=== PATIENT | male | born 1955 | race Caucasian/White ===

== ENCOUNTER 2022-06-18 15:16 | Outpatient (REF) | payer MEDICARE, MEDICAID, SELFPAY ==
[2022-06-18 15:48] LABS: Abs Immature Grans 0.03 10^3/uL (0.0-0.06); Absolute Basophil Count 0.07 10^3/uL (0.0-0.2); Absolute Eosinophil Count 0.14 10^3/uL (0.0-0.7); Absolute Neutrophil Count 4.99 10^3/uL (1.2-6.7); Basophils % 0.8; Eosinophils % 1.7; HCT 42.9 % (40.0-50.0); HGB 14.4 g/dL (13.5-17.5); Immature Grans % 0.4; MCH 29.9 pg (27.0-33.0); MCHC 33.6 % (32.0-36.0); MCV 89 fL (80-95); MPV 10.3 fL (8.0-11.0); Monocytes % 7.2; Neutrophils % 59.9; Platelet Count 311 10^3/uL (130-400); RBC 4.82 10^6/uL (4.36-5.78); RDW 13.3 % (11.8-14.1); RDW-SD 43.8 fL; WBC 8.33 10^3/uL (4.4-10.8)
[2022-06-20 10:11] LABS: IgE 206 IU/mL (<158)
== END 2022-06-18 15:17 | disposition home or self-care (01) ==
LOC: LBN 15:16
PROVIDERS: PCP Family Medicine; Visit Provider Physician Assistant Surgical
DX: J45.909 Unspecified asthma, uncomplicated (principal); Z87.891 Personal history of nicotine dependence
CPT/HCPCS: 82785; 85025

== ENCOUNTER 2022-10-09 19:20 | Outpatient (REF) | payer MEDICARE, MEDICAID, SELFPAY ==
[2022-10-09 18:26] LABS: C Diff PCR Negative (Negative)
== END 2022-10-09 19:21 | disposition home or self-care (01) ==
LOC: LBN 19:20
PROVIDERS: PCP Family Medicine; Visit Provider Student in an Organized Health Care Education/Training Program
DX: R19.7 Diarrhea, unspecified (principal)
CPT/HCPCS: 87493